=== PATIENT | female | born 1930 | race Caucasian/White ===

== ENCOUNTER 2017-10-10 07:34 | Inpatient (IN) | payer OTHER ==
[~2017-10-10] VITALS: Ht 167.6 cm; Wt 66.9 kg
[~2017-10-10 07:34] MED LIST: AMLODIPINE BESYL5 MG PO; ASPIR-LOW81 MG PO; ATORVASTATIN CA40 MG PO; B-1100 MG PO; B-COMPLEX-VITA1 EACH PO; BENICAR HCT 201 EACH PO; CENTRUM SILVER1 EAC3 PO; DONEPEZIL HCL5 MG PO; FOLIC ACID1 MG PO; HYDROCHLOROTH12.5 M3 PO; LIBRIUM5 MG PO; LOSARTAN POTAS100 MG PO; LOSARTAN POTASS50 MG PO; LOW DOSE ASPIRI81 M1 PO; MELATONIN10 M1 PO; NEXIUM40 MG PO; OMEPRAZOLE40 M1 PO; SERTRALINE HCL50 MG PO; TYLENOL EXTRA500 MG PO; VITAMIN B-1100 MG PO; VITAMIN B12 PO; VITAMIN B122500 MCG PO
[2017-10-10 08:30] LABS: HEMATOCRIT 38.5 % (36.0-46.0); HEMOGLOBIN 14.3 G/DL (11.9-15.5); MCH 34.5 PG (29.0-34.0); MCHC 37.1 G/DL (30.0-36.0); PLATELET COUNT 166 K/uL (156-360); RBC DIS.WIDTH-CV 12.3 % (11.8-14.6); RBC DIS.WIDTH-SD 42.3 % (39-53); RED BLOOD COUNT 4.14 M/uL (3.80-5.20); WHITE BLOOD COUNT 9.7 K/uL (4.1-10.2)
[2017-10-10 08:41] LABS: TROP-I INTERPRETATION NEGATIVE; TROPONIN-I < 0.01 ng/mL (0.0-0.30)
[2017-10-10 08:45] LABS: CHLORIDE 85 MEQ/L (99-109); POTASSIUM 4.7 MEQ/L (3.7-5.4); SODIUM 124 MEQ/L (136-147)
[2017-10-10 08:50] LABS: CREATININE 0.7 MG/DL (0.6-1.3); GFR ESTIMATE (CALCULATED) > 59 mL/min/; GLUCOSE 58 mg/dL (70-99); UREA NITROGEN (BUN) 13 mg/dL (9-23)
[2017-10-10 09:20] LABS: APPEARANCE CLEAR ((CLEAR)); BILIRUBIN NEGATIVE; BLOOD SMALL; COLOR YELLOW ((YELLOW)); GLUCOSE (STRIP) NEGATIVE; KETONES 20; LEUKOCYTES NEGATIVE; NITRITE NEGATIVE; PROTEIN (STRIP) NEGATIVE; SPECIFIC GRAVITY 1.013 (1.000-1.030); UROBILINOGEN 0.2 MG/DL (0.2-1.0)
[2017-10-10 09:26] LABS: BACTERIA NONE SEEN /HPF; CALCIUM OXALATE CRYSTALS 2+ /HPF; EPITHELIAL CELLS RARE /HPF; MUCUS TRACE /LPF; RED BLOOD CELLS 0-5 /HPF (0-5); UCUL ADDED? NO; WHITE BLOOD CELLS 0-5 /HPF (0-5)
[2017-10-10] MEDS ORDERED: CYANOCOBALAM1000 MCG PO (11:00)
[2017-10-10] MEDS ORDERED: ATORVASTATIN CA20 MG PO (11:02)
[2017-10-10 12:16] VITALS: BP 153/72
[2017-10-10 14:59] VITALS: BP 141/67
[2017-10-10 15:06] LABS: CHLORIDE 86 MEQ/L (99-109); CREATININE 0.7 MG/DL (0.6-1.3); GFR ESTIMATE (CALCULATED) > 59 mL/min/; GLUCOSE 108 mg/dL (70-99); POTASSIUM 4.3 MEQ/L (3.7-5.4); SODIUM 123 MEQ/L (136-147); UREA NITROGEN (BUN) 13 mg/dL (9-23)
[2017-10-10 16:13] LABS: URIC ACID 4.9 mg/dL (3.1-9.2)
[2017-10-10 19:29] VITALS: BP 123/78
[2017-10-10 20:04] LABS: CHLORIDE 91 MEQ/L (99-109); POTASSIUM 4.3 MEQ/L (3.7-5.4); SODIUM 126 MEQ/L (136-147)
[2017-10-10 20:10] LABS: CREATININE 0.7 MG/DL (0.6-1.3); GFR ESTIMATE (CALCULATED) > 59 mL/min/; GLUCOSE 120 mg/dL (70-99); UREA NITROGEN (BUN) 13 mg/dL (9-23)
[2017-10-10 23:25] VITALS: BP 133/64
[2017-10-10 23:39] LABS: CHLORIDE 95 MEQ/L (99-109); POTASSIUM 4.8 MEQ/L (3.7-5.4); SODIUM 130 MEQ/L (136-147)
[2017-10-10 23:54] LABS: CREATININE 0.7 MG/DL (0.6-1.3); GFR ESTIMATE (CALCULATED) > 59 mL/min/; UREA NITROGEN (BUN) 13 mg/dL (9-23)
[2017-10-11 00:01] LABS: GLUCOSE 84 mg/dL (70-99)
[2017-10-11 03:54] VITALS: BP 127/77
[2017-10-11 06:13] LABS: HEMATOCRIT 33.9 % (36.0-46.0); MCH 33.7 PG (29.0-34.0); MCHC 35.4 G/DL (30.0-36.0); MCV 95.2 FL (83-99); PLATELET COUNT 138 K/uL (156-360); RBC DIS.WIDTH-CV 12.6 % (11.8-14.6); RBC DIS.WIDTH-SD 44.1 % (39-53); RED BLOOD COUNT 3.56 M/uL (3.80-5.20); WHITE BLOOD COUNT 5.1 K/uL (4.1-10.2)
[2017-10-11 06:41] LABS: CHLORIDE 96 MEQ/L (99-109); CREATININE 0.7 MG/DL (0.6-1.3); GFR ESTIMATE (CALCULATED) > 59 mL/min/; GLUCOSE 84 mg/dL (70-99); POTASSIUM 4.1 MEQ/L (3.7-5.4); SODIUM 132 MEQ/L (136-147); UREA NITROGEN (BUN) 13 mg/dL (9-23); URIC ACID 5.5 mg/dL (3.1-9.2)
[2017-10-11 07:00] VITALS: BP 169/74
[2017-10-11 10:59] VITALS: BP 143/77
[2017-10-11 15:06] VITALS: BP 116/67
[2017-10-12 07:14] LABS: CHLORIDE 97 MEQ/L (99-109); CREATININE 0.8 MG/DL (0.6-1.3); GFR ESTIMATE (CALCULATED) > 59 mL/min/; POTASSIUM 3.8 MEQ/L (3.7-5.4); SODIUM 134 MEQ/L (136-147); UREA NITROGEN (BUN) 14 mg/dL (9-23)
[2017-10-12 07:15] LABS: GLUCOSE 112 mg/dL (70-99)
[2017-10-12 07:19] VITALS: BP 144/87
[2017-10-12 15:37] VITALS: BP 124/75
[2017-10-12 23:40] VITALS: BP 159/87
[2017-10-13 06:48] LABS: CHLORIDE 98 MEQ/L (99-109); CREATININE 0.8 MG/DL (0.6-1.3); GFR ESTIMATE (CALCULATED) > 59 mL/min/; GLUCOSE 100 mg/dL (70-99); POTASSIUM 3.7 MEQ/L (3.7-5.4); SODIUM 136 MEQ/L (136-147); UREA NITROGEN (BUN) 15 mg/dL (9-23)
[2017-10-13 07:05] VITALS: BP 160/75
[2017-10-13 15:59] VITALS: BP 142/76
[2017-10-13 23:51] VITALS: BP 119/69
[2017-10-14 07:41] VITALS: BP 128/83
[2017-10-14 16:07] VITALS: BP 131/76
[2017-10-14 23:51] VITALS: BP 129/77
[2017-10-15 06:12] LABS: CHLORIDE 101 MEQ/L (99-109); CREATININE 0.8 MG/DL (0.6-1.3); GFR ESTIMATE (CALCULATED) > 59 mL/min/; GLUCOSE 95 mg/dL (70-99); POTASSIUM 4.2 MEQ/L (3.7-5.4); SODIUM 136 MEQ/L (136-147); UREA NITROGEN (BUN) 15 mg/dL (9-23)
[2017-10-15 07:26] VITALS: BP 145/86
[2017-10-15 16:13] VITALS: BP 126/84
== END 2017-10-15 17:13 | DRG 644 ==
LOC: EME 07:34 → EDOF 11:09 → 5SOUTH 11:09 → ENRESERV 11:27 → 5SOUTH 11:51
PROVIDERS: Emergency Medicine; Hospitalist; Internal Medicine; Internal Medicine Nephrology
DX: E22.2 Syndrome of inappropriate secretion of antidiuretic hormone (principal); G30.9 Alzheimer's disease, unspecified; F02.80 Dementia in other diseases classified elsewhere, unspecified severity, without behavioral disturbance, psychotic disturbance, mood disturbance, and anxiety; T43.225A Adverse effect of selective serotonin reuptake inhibitors, initial encounter; Z87.891 Personal history of nicotine dependence; E87.2 Acidosis; E16.2 Hypoglycemia, unspecified; I10 Essential (primary) hypertension; R29.6 Repeated falls; E78.5 Hyperlipidemia, unspecified; E78.00 Pure hypercholesterolemia, unspecified; E87.8 Other disorders of electrolyte and fluid balance, not elsewhere classified; K21.9 Gastro-esophageal reflux disease without esophagitis; F32.9 Major depressive disorder, single episode, unspecified; F41.9 Anxiety disorder, unspecified; J44.9 Chronic obstructive pulmonary disease, unspecified
CPT/HCPCS: 71046; 72170; 80048; 80048 91; 81003; 82948; 83930; 83935; 84300; 84484; 84550; 85027; 93005; 97530 GO; 99281; 99285; A6214; J1650; J7030